=== PATIENT | female | born 1965 | race African-American/Black ===

== ENCOUNTER 2020-10-25 21:44 | Emergency (ER) | payer MEDICAID ==
[~2020-10-25] VITALS: Ht 162.6 cm; Wt 70.0 kg
--- NOTE | 2020-10-25 22:16 | NUR ---
PT CAME IN CO OF SOB. PT HAS COPD AND IS USUALLY ON 4 LITERS OF O2 AT HOME. PT STATES "RESHMA BEEN TRYING TO TAKE LESS OF MY RISPERDONE, WHICH I TAKE FOR ANXIETY, BUT I KIND OF FEEL LIKE I WAS HAVING AN ANXIOUS PANIC ATTACK EARLIER TODAY AND I COULDNT CATCH MY BREATH". PT 86% ON ROOM AIR. PLACED ON 4 LITERS O2. PT RESTING IN RNEY, CONNECTED TO MONITORS
[2020-10-25] MEDS ORDERED: RISPERIDONE 2 MG TABLET PO SCH (22:30)
[2020-10-25] MEDS ORDERED: LORazepam 1MG TABLET PO ONE (22:30)
[2020-10-25] MEDS ORDERED: LORazepam 1MG TABLET ONE (23:13)
[2020-10-25 23:32] LABS: ANION GAP 4 mmol/L (5-15); CHLORIDE 110 mmol/L (98-107)
[2020-10-25 23:33] LABS: ALBUMIN 3.5 g/dL (3.4-5.0)
[2020-10-25 23:39] LABS: BASOPHILS % (AUTO) 2 % (0-1); EOSINOPHILS % (AUTO) 2 % (1-7); LYMPHOCYTES % (AUTO) 44 % (22-44); MEAN CORPUSCULAR HEMOGLOBIN 20.8 pg (27.0-34.8); MEAN CORPUSCULAR HGB CONC 31.7 g/dL (32.4-35.8); MEAN PLATELET VOLUME 8.9 fL (7.4-10.4); MONOCYTES % (AUTO) 8 % (2-9); NEUTROPHILS % (AUTO) 44 % (42-75); PLATELET COUNT 275 x10^3/uL (130-400); RED BLOOD COUNT 6.03 x10^6/uL (3.82-5.3); RED CELL DISTRIBUTION WIDTH 15.7 % (9.6-15.2)
--- NOTE | 2020-10-25 23:50 | NUR ---
REPORTING "I FEEL BETTER AND FEEL GOOD GOING HOME".
[2020-10-26] LABS: BASOPHILLIC STIPPLING 1+; MICROCYTOSIS 2+; POLYCHROMASIA 1+; TARGET CELLS 2+
[2020-10-26 00:01] LABS: <PLATELET ESTIMATE> ADEQUATE; <PLT MORPHOLOGY> NORMAL PLT MORPH
[2020-10-26 00:30] VITALS: BP 106/69
--- NOTE | 2020-10-26 00:32 | NUR ---
Patient given discharge instructions and they have confirmed that they understand the instructions. Patient ambulatory with steady gait. NAD, all questions answered appropriately, denies additional needs at this time. No personal belongings left in room after discharge. States she doesn't wear oxygen when out of the house and wants to go home. 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
== END 2020-10-26 00:39 | disposition home or self-care (01) ==
LOC: ED 23:13
DX: F41.1 Generalized anxiety disorder (principal); J44.9 Chronic obstructive pulmonary disease, unspecified; R06.02 Shortness of breath; F17.210 Nicotine dependence, cigarettes, uncomplicated
CPT/HCPCS: 36415; 71045; 80048; 82040; 85025; 93005; 99406